=== PATIENT | male | born 1990 | race Caucasian/White ===

== ENCOUNTER 2023-09-19 17:12 | Emergency (ER) | payer SELFPAY ==
[2023-09-19 17:19] VITALS: BP 128/77; PULSE 59; TEMP 36.6; O2SAT 99; BMI 27.1
[2023-09-19 18:00] VITALS: BP 143/86; PULSE 78; O2SAT 100
[2023-09-19 18:42] VITALS: PULSE 60; O2SAT 99
[2023-09-19 18:52] LABS: Bilirubin Urine NEGATIVE (NEGATIVE); Blood Urine NEGATIVE (NEGATIVE); Clarity Urine CLEAR (CLEAR); Color Urine LT. YELLOW (YELLOW); Glucose Urine UA NEGATIVE (NEGATIVE); Ketones Urine NEGATIVE (NEGATIVE); Leukocyte Esterase Urine NEGATIVE (NEGATIVE); Nitrite Urine NEGATIVE (NEGATIVE); Protein Urine NEGATIVE (NEG/TRACE); Specific Gravity Urine 1.025 (1.005-1.025); Urobilinogen Urine 0.2 EU/dL (0.2-1.0)
[2023-09-19 18:55] LABS: Urine Microscopic Indicated NO
--- NOTE | 2023-09-19 18:56 | ED_ITS ---
HPI - Abdominal Pain General Chief Complaint: Abdominal Pain Stated Complaint: Flank Pain Time Seen by Provider: 09/19/23 18:56 History of Present Illness HPI narrative: This patient is here complaining of right flank and abdominal pain. He said it started couple days ago. It has not woke him up from his sleep. He says it really does not bother him much to move about and does not think it is really his back. It does not radiate down into the buttock area. Sometimes it radiates into the groin. He has not been vomiting with it. He believes his mother had kidney stones but he has not had that. He has not seen any blood in his urine. He has not had fever shakes or chills. The pain is only in the right flank and right lower pelvic area. Related Data Home Medications ?Medication ?Instructions ?Recorded ?Confirmed omeprazole 20 mg capsule,delayed 20 mg PO DAILY 09/19/23 09/19/23 release Allergies Allergy/AdvReac Type Severity Reaction Status Date / Time No Known Drug Allergies Allergy Verified 09/19/23 17:23 Exam Narrative Exam Narrative: Awake alert [place] x 3 very pleasant moves about with no hesitation grimacing or discomfort. Straight leg raising test is negative. Hip manipulation and range of motion testing is completely normal. Mario sign is negative. Examination of his abdomen shows mild discomfort in the right lower quadrant but no peritoneal findings. Constitutional Vital Signs, click to edit/add: Last Vital Signs Temp 97.8 F 09/19/23 17:19 Pulse 60 09/19/23 18:42 Resp 16 09/19/23 18:42 BP 143/86 H 09/19/23 18:00 Pulse Ox 99 09/19/23 18:42 O2 Del Method Room Air 09/19/23 17:19 Course Vital Signs Vital signs: Vital Signs Temperature 97.8 F 09/19/23 17:19 Pulse Rate 59 L 09/19/23 17:19 Respiratory Rate 18 09/19/23 17:19 Blood Pressure 128/77 09/19/23 17:19 Pulse Oximetry 99 09/19/23 17:19 Oxygen Delivery Method Room Air 09/19/23 17:19 Temperature 97.8 F 09/19/23 17:19 Pulse Rate 60 09/19/23 18:42 Respiratory Rate 16 09/19/23 18:42 Blood Pressure 143/86 H 09/19/23 18:00 Pulse Oximetry 99 09/19/23 18:42 Oxygen Delivery Method Room Air 09/19/23 17:19 MDM - Abdominal Pain MDM Narrative Medical decision making narrative: Patient presents with suspicious history of kidney stones and I do not believe this is appendicitis but we will get a CT without contrast and urinalysis and CBC. Care will be turned over to the next ER physician at the change of shift Discharge Plan Discharge Chief Complaint: Abdominal Pain Clinical Impression: Abdominal pain Patient Disposition: Still a Patient Prescriptions / Home Meds: No Action omeprazole 20 mg capsule,delayed release(DR/EC) 20 mg PO DAILY Print Language: Maori Referrals: Physician,Non-Staff, MD [Primary Care Provider] - 1 week
--- NOTE | 2023-09-19 19:07 | CT_ITS ---
The [address] [address] Patient Name: ENDER HASSAN MRN: [id number] date: 1990 Sex: M Assigned Patient Location: ER Current Patient Location: ER Accession/Order Number: [id number] Exam Date: 09/19/2023 19:56 Report Date: 09/19/2023 20:41 At the request of: ALEX HALL Procedure: CT abdomen pelvis wo con CT ABDOMEN PELVIS WITHOUT CONTRAST HISTORY: Abdominal pain. Renal stone assessment. COMPARISON: None. TECHNIQUE: Thin section axial CT images were obtained from the lung bases to the pubis symphysis. This CT exam was performed using one or more of the following dose reduction techniques: Automated exposure control, adjustment of the mA and/or kV according to patient size, or use of iterative reconstruction technique. Thin section coronal and sagittal images were reconstructed from the axial data set. All images were reviewed and interpreted. CONTRAST: None. FINDINGS: Assessment of solid organs is limited without the benefit of IV contrast. LUNG BASES: The lung bases are clear. GE JUNCTION AND STOMACH: Negative. No hiatal hernia. LIVER: Negative. GALLBLADDER AND BILIARY TREE: Normal gallbladder. SPLEEN: Negative. PANCREAS: Negative. ADRENALS: Negative. KIDNEYS AND URETERS: Negative. No urinary tract calculi or hydronephrosis. No renal masses or cysts are evident. SMALL BOWEL: Negative. LARGE BOWEL: Negative. APPENDIX: No active disease with normal appendix. AORTA: The abdominal aorta is normal size. IVC: Negative. LYMPH NODES: There is no lymphadenopathy. BLADDER: Normal bladder. BONES: Utilizing last rib-bearing vertebra as T12, there are 4 lumbar like vertebrae with transitional L5 vertebrae demonstrating sacralization. Please make note of this if surgery is ever contemplated for counting purposes. Incidental small Schmorl's nodes along both sides of discs at T11-12, T12-L1 and L1-2. Osseous structures are normal in appearance unremarkable otherwise. COMMENTS: None. CT/CT abdomen pelvis wo con IMPRESSION: 1. No acute or significant pathology; no evidence to explain patient's symptoms. 2. No urinary tract calculi or hydronephrosis. 3. Incidental note made of transitional anatomy lumbosacral junction with what appears to be a transitional L5 vertebrae demonstrating sacralization. Please make note of this if surgery is ever contemplated for counting purposes. These imaging findings do not exclude additional clinically significant abnormalities. This report should be interpreted in the context of clinical information including patient symptoms and available laboratory findings. Follow-up imaging or other interventions may be appropriate, if indicated by your clinical impression. Electronically authenticated by: MITZI CARR Date: 09/19/2023 20:41
[2023-09-19 19:23] LABS: Hematocrit 40.8 % (42.0-54.0); Hemoglobin 13.1 g/dL (14.0-18.0); Mean Corpuscular HGB Conc 32.1 g/dL (29.9-35.2); Mean Corpuscular Hemoglobin 28.5 pg (25.9-34.0); Mean Corpuscular Volume 88.7 fL (80.0-94.0)
[2023-09-19 19:24] LABS: Basophils Percent Auto 0.5 % (0.2-2.0); Eosinophils Absolute Auto 0.4 10^3/uL (0.0-0.7); Eosinophils Percent Auto 4.7 % (0.9-7.0); Immature Granulocytes Abs Auto 0.06 10^3/uL (0.00-0.03); Immature Granulocytes Pct Auto 0.8 % (0.0-0.5); Lymphocytes Absolute Auto 2.2 10^3/uL (1.2-3.8); Lymphocytes Percent Auto 28.1 % (20.5-60.0); Monocytes Absolute Auto 0.7 10^3/uL (0.3-0.8); Monocytes Percent Auto 9.1 % (1.7-12.0); Neutrophils Absolute Auto 4.5 10^3/uL (1.4-6.5); Neutrophils Percent Auto 56.8 % (43.0-75.0); Platelet Count 205 10^3/uL (150-450); Red Cell Distribution Width 13.7 % (11.0-15.0)
[2023-09-19 19:27] LABS: Anion Gap 9.9; BUN Creatinine Ratio 17.6; Calcium 9.5 mg/dL (8.5-10.1); Carbon Dioxide 30.5 mmol/L (21.0-32.0); Chloride 103 mmol/L (98-107); Estimated GFR (African America >60 (>=60); Estimated GFR (Non-African Ame >60 (>=60); Glucose 102 mg/dL (74-106); Potassium 4.4 mmol/L (3.5-5.1); Sodium 139 mmol/L (136-145)
[2023-09-19] MEDS: KETOROLAC TROMETHAMINE 30 MG/ML VIAL IVP (19:50)
[2023-09-19] MEDS: ORPHENADRINE CITRATE 100 MG TABLET.ER PO (21:24)
== END 2023-09-19 21:33 | disposition home or self-care (01) ==
PROVIDERS: Emergency Medicine Emergency Medical Services; Emergency Provider Internal Medicine
DX: S39.011A Strain of muscle, fascia and tendon of abdomen, initial encounter (principal); X58.XXXA Exposure to other specified factors, initial encounter
CPT/HCPCS: 36415; 74176; 80048; 81003; 85025; 96374; 99285; J1885